=== PATIENT | female | born 1985 | race Caucasian/White ===

== ENCOUNTER 2018-03-10 06:04 | Inpatient (IN) | payer BC ==
[2018-03-10] MEDS ORDERED: Promethazine HCl 25 MG/ML VIAL IM PRN ×2 (07:29→09:17)
[2018-03-10] MEDS ORDERED: HYDROcodone/Acetaminophen 5/325 mg Tablet PO PRN ×2 (07:29)
[2018-03-10] MEDS ORDERED: NS w/ Oxytocin 10 units 500 ML IV SCH (07:29)
[2018-03-10] MEDS ORDERED: Lidocaine 1% (PF) 30 ML VIAL SC PRN (07:29)
[2018-03-10] MEDS ORDERED: Butorphanol Tartrate 1 MG/ML VIAL SLOW IVP PRN (07:29)
[2018-03-10] MEDS ORDERED: Ibuprofen 800 MG TAB PO PRN (07:29)
[2018-03-10] MEDS ORDERED: Ondansetron HCl/PF 4 MG/2 ML Vial IVP PRN ×3 (07:29→21:20)
[2018-03-10] MEDS ORDERED: Lactated Ringer's 1,000 ML IV SCH (07:29)
[2018-03-10 07:53] LABS: Hemoglobin 11.7 g/dL (12.0-16.0); Mean Corpuscular HGB CONC 34.9 g/dL (32.0-36.0); Mean Corpuscular Hemoglobin 30.1 pg (27.0-31.0); Mean Corpuscular Volume 86.1 fL (78.0-98.0); Mean Platelet Volume 7.9 fL (7.4-10.4); Platelet Count 256 thou/uL (130-400); RBC Distribution Width 13.9 % (11.5-14.5); Red Blood Cell (RBC) Count 3.89 mill/uL (4.20-5.40)
[2018-03-10] MEDS ORDERED: DISCONTINUE ALL PREVIOUS NARCOTICS FS SCH (08:00)
--- NOTE | 2018-03-10 08:12 | PDOC.LDHP ---
Labor and Delivery H&P Chief complaint: contractions, loss of fluid HPI: Pt is a 32yo @ 40.5 weeks with SROM at home and regular ctx x 4 hrs. Current gestational age (weeks): 40 Due date: 03/04/18 Dating criteria: last menstrual period Grav: 3 Para: 0 Current complications: none Abnormal US findings: No Past Medical History: asthma, depression Current medications: pre- vitamins Previous surgical history: none Allergies/Adverse Reactions: Allergies Allergy/AdvReac Type Severity Reaction Status Date / Time No Known Allergies Allergy Verified 03/10/18 06:57 Social history: none - Physical Exam Vital signs reviewed and normal: yes General: resting Heart: RRR Lungs: CTAB Abdomen: gravid Extremeties: no edema FHT: category 1 - Vaginal Exam cm dilated: 3 Effacement: 50% Station: -1 - OB Labs Blood type: A RH: positive Antibody Screen: negative HIV: negative RPR: negative HEPSAg: negative 1 hour GCT: positive 3 hour GTT: neg GBS: negative Urine drug screen: not done Rubella: immune - Assessment L&D Assessment: term rupture in membranes - Plan Plan: admit to L&D, labor augmentation if indicated, informed consent obtained, anesthesia consult for pain management
[2018-03-10 08:43] LABS: HBSAg Index 0.17 S/CO (0-0.99); Hep B Surf Ag Non-Reactive S/CO (NonReactive)
[2018-03-10] MEDS: Bupivacaine 0.75% 13.4 ML, fentaNYL Citrate/PF 400 MCG in Sodium Chloride 0.9% 78.6 ML EPIDURAL SCH ×2 (08:47→14:48)
[2018-03-10] MEDS ORDERED: Lactated Ringer's 500 ML IV PRN (09:17)
[2018-03-10] MEDS ORDERED: Naloxone HCl 0.4 mg/ml Vial IVP PRN ×2 (09:17)
[2018-03-10] MEDS ORDERED: Acetaminophen 325 MG TAB PO PRN (09:17)
[2018-03-10] MEDS ORDERED: diphenhydrAMINE 50 MG/ML VIAL IVP PRN (09:17)
[2018-03-10] MEDS ORDERED: ePHEDrine/0.9% NaCl/PF SYRINGE 50 mg/10 ml SLOW IVP PRN (09:17)
[2018-03-10] MEDS ORDERED: Eucerin (Mineral Oil/Petrolatum,White) 30 gm Jar TOP PRN (09:17)
[2018-03-10] MEDS ORDERED: Communication Order-Pharmacy FS SCH (09:30)
[2018-03-10] MEDS ORDERED: fentaNYL Citrate/PF 400 MCG, Bupivacaine 0.5% 20 ML in Sodium Chloride 0.9% 72 ML EPIDURAL SCH (09:30)
[2018-03-10] MEDS: Lactated Ringer's 1,000 ML IV SCH ×2 (09:58→15:04)
--- NOTE | 2018-03-10 12:44 | PDOC.LDPN ---
Labor & Delivery Progress Note - Subjective Subjective: comfortable - Objective Vital signs reviewed and normal: yes General: resting Uterine fundus: non tender Dilation: 7 Effacement: 90% Station: -1 FHT: category 1 [place] contractions every: 3 - Assessment (1) 40 weeks gestation of Code(s): Z3A.40 - 40 WEEKS GESTATION OF Current Visit: Yes Status : Acute Plan: continue plan of care
[2018-03-10] MEDS: NS / Oxytocin 40 units/1000ml 1,000 ML IV PRN ×2 (18:06→19:44)
--- NOTE | 2018-03-10 18:15 | PDOC.OPDEL ---
OB Operative/Delivery Note Delivery Dr/Surgeon: Jason Pre-Delivery Diagnosis: active labor, ruptured membrane Procedure/Post Delivery Dx: spontaneous vaginal delivery Weeks gestation: 40 Anesthesia: epidural - Findings A Sex: male - 1 min: 8 - 5 min: 9 - Additional Findings/Plan Placenta delivered: spontaneous Repaired Obstetrical Laceration: 2nd degree Estimated blood loss: 200 per QBL Post delivery plan: routine recovery
[2018-03-10 21:06] LABS: Syphilis Antibody Nonreactive (Nonreactive); Syphilis Antibody Index 0.02 S/CO (<1.00 Non-Reactive)
[2018-03-10] MEDS ORDERED: traMADol HCl 50 MG TAB PO PRN (21:20)
[2018-03-10] MEDS ORDERED: NS / Oxytocin 40 units/1000ml 1,000 ML IV SCH (21:20)
[2018-03-10] MEDS ORDERED: diphenhydrAMINE 25 MG CAP PO PRN (21:20)
[2018-03-10] MEDS ORDERED: Preparation H Ointment 28 GM TUBE PR PRN (21:20)
[2018-03-10] MEDS ORDERED: Benzocaine/Menthol 20-0.5% 60 ML CAN TOP PRN (21:20)
[2018-03-10] MEDS ORDERED: Milk Of Magnesia 30 ML UDCUP PO PRN (21:20)
[2018-03-10] MEDS ORDERED: Lanolin Ointment 7 GM TUBE TOP PRN (21:20)
[2018-03-10] MEDS ORDERED: Bisacodyl 10 MG SUPP PR PRN (21:20)
[2018-03-10] MEDS ORDERED: Acetaminophen/Codeine 30-300mg Tablet PO PRN (21:20)
[2018-03-10] MEDS ORDERED: Docusate Calcium (SURFAK) 240 MG CAP PO SCH (21:30)
[2018-03-10] MEDS ORDERED: Lidocaine 2% MPF 10 ML AMP (For Epidural Use) ONE (22:09)
[2018-03-10] MEDS: Docusate Calcium (SURFAK) 240 MG CAP PO SCH (22:22)
[2018-03-10] MEDS: Ibuprofen 800 MG TAB PO SCH (23:44)
[2018-03-11] MEDS: Acetaminophen/Codeine 30-300mg Tablet PO PRN ×2 (02:44→15:37)
[2018-03-11] MEDS: Ibuprofen 800 MG TAB PO SCH ×3 (05:04→23:41)
[2018-03-11 06:08] LABS: Hemoglobin 8.6 g/dL (12.0-16.0); Mean Corpuscular HGB CONC 34.3 g/dL (32.0-36.0); Mean Corpuscular Hemoglobin 29.8 pg (27.0-31.0); Mean Corpuscular Volume 87.1 fL (78.0-98.0); Mean Platelet Volume 7.8 fL (7.4-10.4); Platelet Count 188 thou/uL (130-400); RBC Distribution Width 13.8 % (11.5-14.5); Red Blood Cell (RBC) Count 2.87 mill/uL (4.20-5.40); White Blood Cell (WBC) Count 14.2 thou/uL (4.8-10.8)
[2018-03-11] MEDS: Docusate Calcium (SURFAK) 240 MG CAP PO SCH ×2 (08:59→23:41)
[2018-03-11] MEDS: Prenatal Vitamin 1 TAB PO SCH (08:59)
[2018-03-11] MEDS: Ferrous Sulfate 325 MG TAB PO SCH ×3 (09:00→16:58)
[2018-03-11] MEDS ORDERED: Adacel (T-DAP) 0.5 ML VIAL IM ONE (09:00)
[2018-03-11 09:42] VITALS: BMI 34.2
--- NOTE | 2018-03-11 10:13 | PDOC.PP ---
Post Progress Note Post Day #: 1 Subjective: baby in NICU w TTN, pt pumping, no breast concerns, min lochia, no sx of anemia PO intake tolerated: yes Flatus: yes Ambulation: yes Vital Signs (12 hours) Temp Pulse Resp BP 03/11/18 07:57 98.1 F 78 18 105/59 L 03/11/18 07:35 98.1 F 78 18 03/11/18 04:50 98.0 F 86 18 112/64 03/11/18 01:35 97.9 F 94 18 121/60 03/10/18 22:25 97.8 F 99 18 134/66 Weight Weight 212 lb - Physical Examination General: NAD Respiratory: non-labored breathing Fundus firm & at: below umb Extremities: negative homans (B) Skin: no rash Neurological: no gross focal deficits Psychiatric: A&Ox3, normal affect Result Diagrams: 03/11/18 05:47 Additional Labs: Post Labs Blood Type A POSITIVE 03/10/18 07:44 Hep Bs Antigen Non-Reactive S/CO (NonReactive) 03/10/18 07:44 (1) 40 weeks gestation of Code(s): Z3A.40 - 40 WEEKS GESTATION OF Status: Acute - Assessment/Plan PPD1, asx anemia, pump at beside, continue PP care
[2018-03-12] MEDS: Acetaminophen/Codeine 30-300mg Tablet PO PRN (01:27)
[2018-03-12] MEDS: Ibuprofen 800 MG TAB PO SCH ×3 (06:27→22:01)
[2018-03-12] MEDS: Docusate Calcium (SURFAK) 240 MG CAP PO SCH ×2 (08:57→20:24)
[2018-03-12] MEDS: Prenatal Vitamin 1 TAB PO SCH (08:57)
[2018-03-12] MEDS: Ferrous Sulfate 325 MG TAB PO SCH ×2 (08:58→20:24)
--- NOTE | 2018-03-12 11:44 | PDOC.PP ---
Post Progress Note Post Day #: 2 Subjective: doing well but tired, discussed anemia, pumping and just started nursing baby IN NICU PO intake tolerated: yes Flatus: yes Ambulation: yes Vital Signs (12 hours) Temp Pulse Resp BP 03/12/18 08:19 97.7 F 84 20 97/53 L 03/12/18 08:00 97.7 F 84 20 Weight Weight 212 lb - Physical Examination General: NAD Abdominal: no distention Fundus firm & at: below umb Extremities: negative homans (B) Neurological: no gross focal deficits Psychiatric: A&Ox3, normal affect Result Diagrams: 03/11/18 05:47 Additional Labs: Post Labs Blood Type A POSITIVE 03/10/18 07:44 Hep Bs Antigen Non-Reactive S/CO (NonReactive) 03/10/18 07:44 (1) 40 weeks gestation of Code(s): Z3A.40 - 40 WEEKS GESTATION OF Status: Acute (2) Anemia Code(s): D64.9 - ANEMIA, UNSPECIFIED Status: Acute - Assessment/Plan PPD2, w anemia, repeat hgb today, consider DC tomorrow as baby is just getting latch skin/skin today and maternal anemia.
[2018-03-12 13:24] LABS: Hemoglobin 9.4 g/dL (12.0-16.0)
[2018-03-13] MEDS: Acetaminophen/Codeine 30-300mg Tablet PO PRN (00:24)
[2018-03-13] MEDS: Ibuprofen 800 MG TAB PO SCH (05:33)
[2018-03-13 07:56] VITALS: BP 110/61; TEMP 98.1
[2018-03-13] MEDS: Prenatal Vitamin 1 TAB PO SCH (08:46)
[2018-03-13] MEDS: Ferrous Sulfate 325 MG TAB PO SCH (08:46)
[2018-03-13] MEDS: Docusate Calcium (SURFAK) 240 MG CAP PO SCH (08:46)
--- NOTE | 2018-03-13 11:23 | PDOC.PP ---
Post Progress Note Post Day #: 3 Subjective: doing well, no concerns PO intake tolerated: yes Flatus: yes Ambulation: yes Vital Signs (12 hours) Temp Pulse Resp BP 03/13/18 08:00 98.1 F 78 20 03/13/18 07:55 98.1 F 78 20 110/61 Weight Weight 212 lb - Physical Examination Fundus firm & at: below umb Extremities: negative homans (B) Skin: no rash Psychiatric: A&Ox3, normal affect Result Diagrams: 03/12/18 13:11 Additional Labs: Post Labs Blood Type A POSITIVE 03/10/18 07:44 Hep Bs Antigen Non-Reactive S/CO (NonReactive) 03/10/18 07:44 (1) 40 weeks gestation of Code(s): Z3A.40 - 40 WEEKS GESTATION OF Status: Acute (2) Anemia Code(s): D64.9 - ANEMIA, UNSPECIFIED Status: Acute - Assessment/Plan PPD3 anemia stable, plan for DC today.
== END 2018-03-13 14:10 | disposition home or self-care (01) | DRG 775 ==
LOC: L&D/OP 06:04 → L&D 07:25 → 3SW 21:05
PROVIDERS: ADMIT Obstetrics & Gynecology; ATTEND Obstetrics & Gynecology
PROC: 10E0XZZ Delivery of Products of Conception, External Approach (ICD-10-PCS; principal; 2018-03-10)
PROC: 0KQM0ZZ Repair Perineum Muscle, Open Approach (ICD-10-PCS; 2018-03-10)
DX: O99.02 Anemia complicating childbirth (principal); O70.1 Second degree perineal laceration during delivery; Z37.0 Single live birth; Z3A.40 40 weeks gestation of pregnancy; D64.9 Anemia, unspecified
CPT/HCPCS: 36415; 51701; 51702; 85014; 85018; 85027; 86780; 86850; 86900; 86901; 87340; 99285; J2001; J2405; J3010; J7050

== ENCOUNTER 2020-09-05 07:20 | Inpatient (IN) | payer BC ==
[2020-09-05 07:55] VITALS: BMI 33.9
[2020-09-05] MEDS ORDERED: Butorphanol Tartrate 1 MG/ML VIAL SLOW IVP PRN (08:01)
[2020-09-05] MEDS ORDERED: hydrALAZINE 20 MG/ML VIAL SLOW IVP PRN ×2 (08:01→10:58)
[2020-09-05] MEDS ORDERED: Ondansetron PF 4 MG/2 ML Vial IVP PRN ×2 (08:01→10:58)
[2020-09-05] MEDS ORDERED: Lidocaine 1% (PF) 30 ML VIAL SC PRN (08:01)
[2020-09-05] MEDS ORDERED: Ibuprofen 800 MG TAB PO PRN (08:01)
[2020-09-05] MEDS ORDERED: HYDROcodone/Acetaminophen 5/325 mg Tablet PO PRN ×4 (08:01→10:58)
[2020-09-05] MEDS ORDERED: Promethazine HCl 25 MG/ML VIAL IM PRN (08:01)
[2020-09-05] MEDS ORDERED: NS / Oxytocin 40 units/1000ml 1,000 ML IV PRN (08:01)
[2020-09-05] MEDS ORDERED: Fentanyl 4 mcg/Bup 0.1% Cadd 100 ML ONE (08:08)
[2020-09-05] MEDS ORDERED: Lactated Ringer's 1,000 ML IV SCH ×2 (08:15)
[2020-09-05] MEDS ORDERED: Lidocaine 1% (PF) 30 ML VIAL ONE (08:19)
[2020-09-05] MEDS ORDERED: NS w/ Oxytocin 30 units 500 ML ONE ×2 (08:19→08:50)
[2020-09-05 08:26] LABS: Amnisure Test RUPTURE DETECTED (No Rupture)
[2020-09-05 08:27] LABS: Amnisure Internal Control QC ACCEPTABLE (ACCEPTABLE)
[2020-09-05 08:36] LABS: Mean Corpuscular HGB CONC 32.9 g/dL (32.0-36.0); Mean Corpuscular Hemoglobin 28.6 pg (27.0-31.0); Mean Corpuscular Volume 87.2 fL (78.0-98.0); Mean Platelet Volume 9.5 fL (7.4-10.4); Platelet Count 192 thou/uL (130-400); RBC Distribution Width 13.5 % (11.5-14.5); Red Blood Cell (RBC) Count 4.18 mill/uL (4.20-5.40); White Blood Cell (WBC) Count 11.2 thou/uL (4.8-10.8)
--- NOTE | 2020-09-05 08:43 | PDOC.OPDEL ---
OB Operative/Delivery Note Delivery Dr/Surgeon: Jason Assist: Cait Pre-Delivery Diagnosis: active labor Weeks gestation: 40 Anesthesia: local - Findings A Sex: male - Additional Findings/Plan Placenta delivered: spontaneous Repaired Obstetrical Laceration: 2nd degree Estimated blood loss: 300ml Compilations/Other Findings: precip delivery attended by Dr. Chavira until I arrived for delivery of placenta and repair of perineum Post delivery plan: routine recovery
[2020-09-05 09:10] LABS: Syphilis Antibody Nonreactive (Nonreactive); Syphilis Antibody Index 0.02 S/CO (<1.00 Non-Reactive)
[2020-09-05 09:11] LABS: HBSAg Index 0.27 S/CO (0-0.99); Hep B Surf Ag Non-Reactive S/CO (NonReactive)
[2020-09-05] MEDS ORDERED: Lanolin Ointment 7 GM TUBE TOP PRN (10:58)
[2020-09-05] MEDS ORDERED: Bisacodyl 10 MG SUPP PR PRN (10:58)
[2020-09-05] MEDS ORDERED: diphenhydrAMINE 25 MG CAP PO PRN (10:58)
[2020-09-05] MEDS ORDERED: NS w/ Oxytocin 30 units 500 ML IV SCH (10:58)
[2020-09-05] MEDS ORDERED: Preparation H Ointment 28 GM TUBE PR PRN (10:58)
[2020-09-05] MEDS ORDERED: Milk Of Magnesia 30 ML UDCUP PO PRN (10:58)
[2020-09-05] MEDS ORDERED: Adacel (T-DAP) 0.5 ML SYRINGE IM ONE (10:58)
[2020-09-05] MEDS ORDERED: Benzocaine-Menthol 82.5 ML CAN TOP PRN (10:58)
[2020-09-05] MEDS ORDERED: Docusate Calcium (SURFAK) 240 MG CAP PO SCH (12:00)
[2020-09-05] MEDS ORDERED: Prenatal Vitamin 1 TAB PO SCH (12:00)
[2020-09-05 12:33] LABS: SARS-CoV-2 MS2 Positive; SARS-CoV-2 N Gene Negative; SARS-CoV-2 S Gene Negative; SARS-CoV-2 by NAA Not Detected (NotDetected); SARS-CoV-2 orf1ab Negative
[2020-09-05] MEDS: Ibuprofen 800 MG TAB PO SCH ×2 (15:00→22:00)
[2020-09-05] MEDS: Ferrous Sulfate 325 MG TAB PO SCH (16:18)
[2020-09-05] MEDS: Docusate Calcium (SURFAK) 240 MG CAP PO SCH (21:58)
[2020-09-06] MEDS: Ibuprofen 800 MG TAB PO SCH ×2 (05:46→13:38)
[2020-09-06 08:10] VITALS: BP 119/71; TEMP 97.8
[2020-09-06] MEDS: Ferrous Sulfate 325 MG TAB PO SCH (08:25)
[2020-09-06] MEDS: Docusate Calcium (SURFAK) 240 MG CAP PO SCH (08:30)
[2020-09-06] MEDS ORDERED: Prenatal Vitamin 1 TAB PO SCH (09:00)
--- NOTE | 2020-09-06 10:38 | PDOC.PP ---
Post Progress Note Post Day #: 1 Subjective: PPD 1 doing well, breast feeding well PO intake tolerated: yes Flatus: yes Ambulation: yes Vital Signs (12 hours) Temp Pulse Resp BP Pulse Ox 09/06/20 08:25 97 09/06/20 08:09 97.8 F 89 20 119/71 97 09/06/20 05:00 97.6 F 76 18 131/72 98 09/06/20 00:10 98.3 F 91 18 139/74 98 Weight Weight 210 lb - Physical Examination General: NAD Respiratory: non-labored breathing Abdominal: no distention Neurological: no gross focal deficits Psychiatric: A&Ox3, normal affect Result Diagrams: 09/05/20 08:13 Additional Labs: Post Labs Hep Bs Antigen Non-Reactive S/CO (NonReactive) 09/05/20 08:13 Blood Type A POSITIVE 09/05/20 08:13 (1) Vaginal delivery Code(s): O80 - ENCOUNTER FOR FULL-TERM UNCOMPLICATED DELIVERY Status: Acute (2) 40 weeks gestation of Code(s): Z3A.40 - 40 WEEKS GESTATION OF Status: Acute - Assessment/Plan PPD1 doing well, would like DC home today.
== END 2020-09-06 14:15 | disposition home or self-care (01) | DRG 807 ==
LOC: L&D/OP 07:20 → L&D 08:01 → 3SW 11:26
PROVIDERS: ADMIT Obstetrics & Gynecology; ATTEND Obstetrics & Gynecology
PROC: 10E0XZZ Delivery of Products of Conception, External Approach (ICD-10-PCS; principal; 2020-09-05)
PROC: 0KQM0ZZ Repair Perineum Muscle, Open Approach (ICD-10-PCS; 2020-09-05)
DX: O99.52 Diseases of the respiratory system complicating childbirth (principal); Z37.0 Single live birth; J45.909 Unspecified asthma, uncomplicated; Z3A.40 40 weeks gestation of pregnancy; Z20.822 Contact with and (suspected) exposure to COVID-19; O70.1 Second degree perineal laceration during delivery
CPT/HCPCS: 36415; 84112; 85027; 86780; 86850; 86900; 86901; 87340; 87635; 99285; J2001; J2590; U0003